=== PATIENT | female | born 1940 | race Caucasian/White ===

== ENCOUNTER 2017-03-10 10:15 | Outpatient (RCR) | payer MEDICARE, BC ==
[~2017-03-10 10:15] MED LIST: ASPIRIN 32325 MG/TA1 PO; NORCO 325 MG-51 TAB PO; PRINIVIL2.5 MG PO; SYNTHROID 0.0.025 MG PO; ULTRAM 50MG TAB50 MG PO
== END 2017-04-13 08:48 | disposition still patient (30) ==
LOC: MKS.ESL.PT 10:15
DX: M43.17 Spondylolisthesis, lumbosacral region (principal); M47.896 Other spondylosis, lumbar region; S72.102D Unspecified trochanteric fracture of left femur, subsequent encounter for closed fracture with routine healing; X58.XXXD Exposure to other specified factors, subsequent encounter
CPT/HCPCS: G8978-GP; G8979-GP; G8980-GP

== ENCOUNTER 2018-12-18 09:15 | Outpatient (RCR) | payer MEDICARE, BC | END 2019-01-18 | disposition home or self-care (01) | LOC: MKS.ESL.PT | DX: S72.91XD Unspecified fracture of right femur, subsequent encounter for closed fracture with routine healing (principal) | CPT/HCPCS: G8978-GP; G8979-GP ==

== ENCOUNTER 2022-06-02 13:25 | Outpatient (RCR) | payer SELFPAY | END 2022-06-06 | LOC: COL.CR | DX: Z29.8 Encounter for other specified prophylactic measures (principal) ==

== ENCOUNTER 2022-06-07 04:04 | Outpatient (RCR) | payer SELFPAY | END 2022-07-07 | LOC: COL.CR | DX: Z29.8 Encounter for other specified prophylactic measures (principal) ==

== ENCOUNTER 2022-11-24 20:20 | Inpatient (IN) | payer MEDICARE, BC ==
[~2022-11-24] VITALS: Ht 162.6 cm; Wt 46.1 kg
[2022-11-24 21:11] LABS: BASO # 0.1 K/mm3 (0.0-0.2); BASO % 0.3 % (0.0-2.0); EOS # 0.1 K/mm3 (0.0-0.7); EOS % 0.4 % (0.0-4.0); GRAN % 88.2 % (42.2-75.2); HEMOGLOBIN 14.6 g/dl (12.5-16.0); LYMPH # 1.2 K/mm3 (1.2-3.4); LYMPH % 6.3 % (20.0-51.0); MEAN CELL VOLUME 100 fl (80.0-100.0); MEAN CORPUSCULAR HEMOGLOBIN 32 pg (27-31); MEAN CORPUSCULAR HGB CONC 32 g/dl (33.0-37.0); MEAN PLATELET VOLUME 9.4 fl (7.4-10.4); MONO # 0.9 K/mm3 (0.1-0.6); MONO % 4.4 % (1.7-9.3); PLATELET COUNT 346 K/mm3 (130-400); RED BLOOD COUNT 4.52 M/mm3 (4.10-5.30); REDCELL DISTRIBUTION WIDTH-CV 13.7 % (11.5-14.5)
[2022-11-24 21:24] LABS: ALBUMIN 4.5 gm/dL (3.4-4.8); C-REACTIVE PROTEIN 0.13 mg/dL (0.00-0.50); CALCIUM 10.8 mg/dL (8.4-10.2); CREATININE, serum 1.27 mg/dL (0.57-1.11); POTASSIUM 4.6 mmol/L (3.5-4.5); TOTAL PROTEIN 8.3 gm/dL (6.2-8.1)
[2022-11-24 21:29] LABS: COLLECTION METHOD CLEAN CATCH
[2022-11-24 21:39] LABS: PH 5.5 (5.0-8.5); URINE APPEARANCE Turbid (CLEAR/HAZY); URINE BLOOD TRACE-INTACT (NEGATIVE); URINE COLOR Yellow (YELLOW); URINE GLUCOSE Negative (NEGATIVE); URINE KETONE 1+ (NEGATIVE); URINE NITRATE Positive (NEGATIVE); URINE PROTEIN(semi-quant) 3+ (NEGATIVE); URINE UROBILINOGEN 0.2 E.U/dL (0.2-1.0)
[2022-11-24 21:43] LABS: MUCOUS Present (NOT PRESENT); URINE BACTERIA Rare /hpf (NONE SEEN)
[2022-11-24] MEDS ORDERED: NAMENDA 10MG TA10 MG PO (23:07)
[2022-11-24] MEDS ORDERED: ARICEPT10 MG PO (23:07)
[2022-11-24] MEDS ORDERED: SYNTHROID0.05 MG/TA PO (23:08)
[2022-11-24] MEDS ORDERED: PRINIVIL2.5 MG PO (23:09)
[2022-11-25] VITALS (8 sets, daily range): BP systolic 113–141; BP diastolic 62–76; PULSE 75–99; TEMP 97.5–99.6
[2022-11-25 01:04] LABS: ANION GAP 11 mmol/L (7-16); BLOOD UREA NITROGEN 19 mg/dL (10-20); CALCIUM 8.4 mg/dL (8.4-10.2); CARBON DIOXIDE 20 mmol/L (23-31); CHLORIDE 115 mmol/L (98-107); CREATININE, serum 0.88 mg/dL (0.57-1.11); GLUCOSE 118 mg/dL (70-99); MAGNESIUM 1.8 mg/dL (1.6-2.6); PHOSPHOROUS 2.4 mg/dL (2.3-4.7); POTASSIUM 3.9 mmol/L (3.5-4.5); SODIUM 146 mmol/L (136-145)
[2022-11-25 01:25] LABS: TROPONIN-I < 0.010 ng/mL (0.00-0.033); TSH w REFLEX 2.512 uIU/mL (0.350-4.940)
--- NOTE | 2022-11-25 02:15 | NUR ---
The patient arrived from ED. This patient is alert but not oriented. Pt was incontinent of stool, pt unable to tell us she needs to go to the bathroom. The patient's IV is in the Right AC, however, the IV does not work well with the patient's bending elbow. Labs were needed at the 0300 hour, so this RN started a new IV to draw those labs. The patient does have some reddening between the gluteal folds from soreness d/t diarrhea. The patient has a lot of bruising and skin tears to the bilateral upper extremities. The patient's daughter Lashanda is in the room and at the bedside. She stayed by the request of CAMI Lopez. No other concerns.
[2022-11-25 03:01] LABS: MEAN CELL VOLUME 99 fl (80.0-100.0); MEAN CORPUSCULAR HGB CONC 33 g/dl (33.0-37.0); MEAN PLATELET VOLUME 9.3 fl (7.4-10.4); RED BLOOD COUNT 3.63 M/mm3 (4.10-5.30); REDCELL DISTRIBUTION WIDTH-CV 13.5 % (11.5-14.5)
[2022-11-25 03:03] LABS: HEMOGLOBIN 11.8 g/dl (12.5-16.0); MEAN CORPUSCULAR HEMOGLOBIN 33 pg (27-31); PLATELET COUNT 241 K/mm3 (130-400)
[2022-11-25 03:19] LABS: ALBUMIN 3.3 gm/dL (3.4-4.8); CALCIUM 8.6 mg/dL (8.4-10.2); CREATININE, serum 0.96 mg/dL (0.57-1.11); POTASSIUM 3.8 mmol/L (3.5-4.5); TOTAL PROTEIN 6.1 gm/dL (6.2-8.1)
[2022-11-25 03:33] LABS: BAND 10 % (0-10); LYMPHOCYTE 4 % (20.0-51.0); NEUTROPHILS 84 % (42.0-75.2); PLATELET ESTIMATE NORMAL (NORMAL)
[2022-11-25 03:34] LABS: HYPOCHROMIA 1+
--- NOTE | 2022-11-25 09:03 | NUR ---
CHARITY met with the patient and her daughter, Lorrie, to discuss discharge plan. The patient was sleeping. The patient lives in [place] with her , Noah (ph#[phone]). Lorrie states that the patient has a walker, but will forget to use it, due to some underlying dementia. She states that her father (the patient's ) typically holds her hand when she walks. She needs assistance with ADLs and the patient's and daughters assist with this. The patient's PCP is Dr. Justine Browne in [place] ph#[phone] and she receives her medications from [facility]. Lorrie states that she believes the patient has a DPOA-HC, but she would need to check with her father. Lorrie states that her and her sisters live in [place] and help with the patient. She states that the plan is for the patient to return home with family support upon discharge. PT/OT have been ordered. Will await their evals. *Discharge plan: home with family support. Will await PT/OT evals*
--- NOTE | 2022-11-25 13:33 | NUR ---
Initial visit attempt: Patient slept though Furnace Charger gave her card to her and let him and their daughter know that she is available to offer prayer and God's blessings for Trinh at anytime throughout the day.
--- NOTE | 2022-11-25 17:00 | NUR ---
PATIENT COMPLETELY INCONT. STILL UNABLE TO HOLD A CONVERSATION.
--- NOTE | 2022-11-25 18:30 | NUR ---
PATIENT RESTING IN BED. REPOSITIONED TO LEFT SIDE. CALL [facility] IN REACH. BED ALARM ON. FAMILY AT BEDSIDE.
[2022-11-26] VITALS (11 sets, daily range): BP systolic 116–175; BP diastolic 61–81; PULSE 64–90; TEMP 97.7–99.2
[2022-11-26 06:56] LABS: BASO % 0.3 % (0.0-2.0); EOS # 0.1 K/mm3 (0.0-0.7); EOS % 0.9 % (0.0-4.0); GRAN # 5.7 K/mm3 (1.4-6.5); GRAN % 75.6 % (42.2-75.2); HEMATOCRIT 34.7 % (37.0-47.0); HEMOGLOBIN 11.4 g/dl (12.5-16.0); LYMPH # 1.1 K/mm3 (1.2-3.4); LYMPH % 14.2 % (20.0-51.0); MEAN CELL VOLUME 100 fl (80.0-100.0); MEAN CORPUSCULAR HEMOGLOBIN 33 pg (27-31); MEAN CORPUSCULAR HGB CONC 33 g/dl (33.0-37.0); MEAN PLATELET VOLUME 9.6 fl (7.4-10.4); MONO # 0.6 K/mm3 (0.1-0.6); MONO % 8.3 % (1.7-9.3); PLATELET COUNT 215 K/mm3 (130-400); RED BLOOD COUNT 3.48 M/mm3 (4.10-5.30); REDCELL DISTRIBUTION WIDTH-CV 13.8 % (11.5-14.5)
[2022-11-26 07:21] LABS: ALBUMIN 2.9 gm/dL (3.4-4.8); BILIRUBIN,TOTAL 0.5 mg/dL (0.2-1.2); CALCIUM 8.4 mg/dL (8.4-10.2); CREATININE, serum 0.83 mg/dL (0.57-1.11); POTASSIUM 3.4 mmol/L (3.5-4.5); TOTAL PROTEIN 5.5 gm/dL (6.2-8.1)
--- NOTE | 2022-11-26 08:00 | NUR ---
PATINET SLEEPING, RESTING IN BED. DAUGHTER AT BEDSIDE. BED ALARM ON. CALL LIGHT [facility] IN REACH.
--- NOTE | 2022-11-26 17:00 | NUR ---
TAMYN REQUIRES 1 ASSIST FROM BED TO BEDSIDE COMMODE, TWO ASSIST FROM BEDSIDE COMMMODE BACK TO BED. PATIENT MORE AWAKE AND ALERT TODAY, UP AND ANSWERS OCCASIONAL QUESTIONS. PATIENT IS STILL DISORIENTED TO TIME. IV PATENT, FLUIDS INFUSING. FAMILY ALWAYS AT BEDSIDE. BED ALARM ON, CALL LIGHT WITH IN REACH.
[2022-11-27] VITALS (12 sets, daily range): BP systolic 145–181; BP diastolic 69–98; PULSE 79–109; TEMP 97.6–98.6
[2022-11-27 06:21] LABS: GRAN # 3.9 K/mm3 (1.4-6.5); GRAN % 79.3 % (42.2-75.2); LYMPH # 0.9 K/mm3 (1.2-3.4); LYMPH % 18.3 % (20.0-51.0); MEAN CELL VOLUME 97 fl (80.0-100.0); MEAN CORPUSCULAR HEMOGLOBIN 33 pg (27-31); MEAN CORPUSCULAR HGB CONC 34 g/dl (33.0-37.0); MEAN PLATELET VOLUME 9.7 fl (7.4-10.4); MONO # 0.1 K/mm3 (0.1-0.6); PLATELET COUNT 256 K/mm3 (130-400); RED BLOOD COUNT 4.43 M/mm3 (4.10-5.30); REDCELL DISTRIBUTION WIDTH-CV 13.1 % (11.5-14.5)
[2022-11-27 06:40] LABS: HEMOGLOBIN 14.4 g/dl (12.5-16.0)
[2022-11-27 06:48] LABS: ALBUMIN 3.6 gm/dL (3.4-4.8); BILIRUBIN,TOTAL 0.5 mg/dL (0.2-1.2); CALCIUM 9.1 mg/dL (8.4-10.2); CREATININE, serum 0.77 mg/dL (0.57-1.11); POTASSIUM 3.9 mmol/L (3.5-4.5)
--- NOTE | 2022-11-27 09:08 | NUR ---
PATIENT LOOKS TO BE FREE FROM HIVES REPORTED BY NIGHT RN. PATIENT DID SAY SHE WAS ITCHY LAST NIGHT, BUT IS NOT AT THIS TIME. PATIENT IS RESTING IN BED, AWAKE AND ALERT, DENIES ANY NEEDS OR COMPLAINTS. FAMILY AT BEDSIDE. LOOP RECORDER INCISION SITE DRESSING DRY AND INTACT. ABDI RN AT BEDSIDE. BED ALARM LEFT ON , CALL LIGHT WITH IN REACH.
--- NOTE | 2022-11-27 13:00 | NUR ---
PATIENT AWAKE AND ALERT, RESTING IN BED. FAMILY AT BEDSIDE. PATIENT DENIES ANY NEEDS OR PAIN AT THIS TIME. CALL LIGHT [facility] IN REACH. BED ALARM ON. MAGNESIUM INFUSING.
--- NOTE | 2022-11-27 13:02 | NUR ---
Dr. Rueda informs patient likely discharging on Tuesday11/30/2022; PT/OT recommending SNF vs. patient and family preference for HH upon intake assessment. Electrical And Instrumentation Mechanic to follow up with patient/family regarding SNF placement per recommendations.
--- NOTE | 2022-11-27 13:40 | NUR ---
PATIENT FAMILY CONSTANTLY REPORTING TO RN () THAT PATIENT WOULD LIKE TO GET UP, PATIENT WANTS TO SIT UP, PATIENT STATED SHE WANTS TO GET ON COMMODE. HOWEVER PATIENT INCONTONINENT. WHEN ASKING THE PATIENT IF SHE NEEDS TO GO TO THE BATHROOM. THE PATIENT SAYS "OH OK." CHRIS IS AGREES TO WHATEVER US STATED. SEEMS UNABLE TO MAKE DECISIONS FOR HERSELF. WHEN IV EXPLAINED, CHRIS DOES NOT KNOW WHAT IT IS FOR.
--- NOTE | 2022-11-27 13:49 | NUR ---
Health And Wellness Coordinator rounds: Health And Wellness Coordinator visit attempted. Someone in what appeared to be EMS uniform was with Patient.
--- NOTE | 2022-11-27 14:15 | NUR ---
A FEW MINUTES AFTER RN AND PCT FINISHED TOILETING/RETURNING PATIENT TO BED AND RESPOSITOINING, HER FAMILY MEMBER AGAIN CAME TO DESK AND STATED HER MOTHER NEEDED TO TRY THE BED PIERCE. INFORMED PATIENTS FAMILY MEMBER THAT SITTING ON THE BEDSIDE COMMODE FOR THE 4TH TIME IN ONE HOUR IS NOT GOING TO MAKE THE PATIENT VOID, SHE IS INCONTINENT, NOR WILL IT HELP WITH HOW ANXIOUS SHE IS. EDUCATED THE PATIENTS DAUGHTER THAT ALL WE CAN DO IS PROVIDE A CALM ENVIROMENT, WITH MAYBE LESS TRAFFIC IN AND OUT, KEEP PROVIDING REORIENTATION NEEDED, AND KEEP HER COMFORTABLE POSSIBLE. AT LEAST 10 DIFFERENT FAMILY MEMBERS HAVE BEEN IN THE ROOM JUST FOR THIS RN SHIFT.
--- NOTE | 2022-11-27 16:35 | NUR ---
PATIENT STILL FIDGETING AND RESTLESS, DESPITE MULTIPLE ATTEMPTS AT REORIENTATION. PATIENT ASSISTED TO RECLINER BY RN AND PCT. CALL LIGHT WITHIN REACH. PATIENTS DAUGHTER AT BEDSIDE.
--- NOTE | 2022-11-27 17:45 | NUR ---
PATIENTS FAMILY DID NOT CALL FOR ASSISTANCE FOR PATIENT TO GET BACK INTO BED. PATIENT URINATED ON FLOOR, SO MUCH SO THAT ENVIRONMENTAL SERVICES HAD TO ASSIST. PATIENTS FAMILY EDUCATED ON THE NEED TO CALL PCT RESERVOIR CARETAKER FOR ASSISTANCE WITH TRANSFERING PATIENT AND THE RISK FOR FALL IN DOING SO WITHOUT STAFF. PATIENT REPOSITIONED BY PCT, RESTING IN BED.
--- NOTE | 2022-11-27 21:18 | NUR ---
AFTER MEDICATION ADMINISTRATION THIS RN WALKED OUT OF THE ROOM. SOON I WALKED OUT, THE FAMILY CAME OUT SAYING SHE NEEDED TO GO TO THE BATHROOM. WE ENTERED THE ROOM, AND THE DAUGHTERS WERE SITTING ON THE BED WITH THE PATIENT. THE PATIENT DOES NOT MOVE VERY WELL, SHE LEANS BACKWARDS AND DOES NOT BEND WELL. HER FEET SHUFFLE, HOWEVER SHE DOES TAKE A WHILE TO MOVE APPROPRIATELY.
[2022-11-28] VITALS (9 sets, daily range): BP systolic 111–134; BP diastolic 62–76; PULSE 74–91; TEMP 97–98.8
--- NOTE | 2022-11-28 05:44 | NUR ---
PT IS VERY DIFFICULT TO GET UP TO BEDSIDE COMMODE, CONSTANT CUES ARE GIVEN FOR HER TO MOVE HER FEET, AND GRAB THE CHAIR TO HELP LOWER HER SELF, NEED TO TELL HER WHEN TO BEND AT THE WAIST. SHE IS VERY GLASSY-EYED, PLEASANTLY CONFUSED.
--- NOTE | 2022-11-28 09:58 | NUR ---
Shift assessment performed. Scheduled medications given. VSS. Patient alert but not oriented. Patient up to bedside commode with the assistance of PT and this RN. Able to follow commands. Patient groaned and grimaced with movement. PRN tylenol given. Patient is currently resting in bed. Family at the bedside. Call light in reach. Fall and seizure and fall percautions in place.
--- NOTE | 2022-11-28 12:10 | NUR ---
Patient's daugtherLashanda, contacted this RN about patients allergy to macrobid. Per fadither, patient has a delayed reaction to this medication and has been hospitalized is the past due to this medication. Dr. Rueda notified, this RN was instructed to continue to monitor patient for reactions. Dr. Rossi notified regarding patient multiple allergies and requested assistance with abx management. [place] to contact family and modify plan of care as needed.
--- NOTE | 2022-11-28 12:15 | NUR ---
Patient shows no s/s of allergic reaction at this time.
--- NOTE | 2022-11-28 13:21 | NUR ---
CHARITY spoke to Dr. Rueda in regards to patient's discharge planning. provided that patient will discharge on Tuesday11/29/2022. Request was made to discuss disharge planning with family for choice of SNF. CHARITY will continue to follow.
--- NOTE | 2022-11-28 13:40 | NUR ---
CHARITY spoke with daughter Lashanda [phone]. Daughter provided that patient preference is [facility] for choice of SNF. Referral documentation sent to [facility]. CHARITY will continue to follow.
--- NOTE | 2022-11-28 17:07 | NUR ---
Patient has had an ok day. Slept a majority of the shift, was easily aroused by physical and verbal stimulation. No s/s of pain or disomcofort at this time. VSS. Call light in reach. Fall and seizure percautions in place. Family at the bedside.
[2022-11-29] VITALS (7 sets, daily range): BP systolic 120–165; BP diastolic 64–99; PULSE 68–99; TEMP 98–99.8
[2022-11-29 06:43] LABS: BASO % 0.2 % (0.0-2.0); EOS # 0.1 K/mm3 (0.0-0.7); EOS % 1.7 % (0.0-4.0); GRAN # 4.2 K/mm3 (1.4-6.5); GRAN % 65.8 % (42.2-75.2); HEMATOCRIT 39.2 % (37.0-47.0); HEMOGLOBIN 12.8 g/dl (12.5-16.0); LYMPH # 1.3 K/mm3 (1.2-3.4); LYMPH % 20.9 % (20.0-51.0); MEAN CELL VOLUME 98 fl (80.0-100.0); MEAN CORPUSCULAR HEMOGLOBIN 32 pg (27-31); MEAN CORPUSCULAR HGB CONC 33 g/dl (33.0-37.0); MEAN PLATELET VOLUME 9.7 fl (7.4-10.4); MONO # 0.7 K/mm3 (0.1-0.6); MONO % 10.6 % (1.7-9.3); PLATELET COUNT 247 K/mm3 (130-400); REDCELL DISTRIBUTION WIDTH-CV 13.2 % (11.5-14.5)
[2022-11-29 07:02] LABS: CALCIUM 8.4 mg/dL (8.4-10.2); CREATININE, serum 0.77 mg/dL (0.57-1.11)
[2022-11-29 07:16] LABS: POTASSIUM 2.8 mmol/L (3.5-4.5)
--- NOTE | 2022-11-29 08:25 | NUR ---
Pt awake and sitting up in bed. Morning medications administered per eMAR. Shift assessment completed. VSS. Telemetry remains on. INT in L forearm remains intact; no edema or redness. Incision site over loop recorder remains intact; ecchymosis noted. No complaints of pain at this time. Call light within reach. Fall precautions remain in place. Daughter remains at bedside.
--- NOTE | 2022-11-29 09:39 | NUR ---
Clinical updates sent to Srinath at [facility].
--- NOTE | 2022-11-29 14:50 | NUR ---
Patient scheduled telehealth visit with Dr. Bang, Infectious Disease. Pt consents to visit. Equipment set up, audio and video connections established. Visit conducted by . No technical concerns or issues. PT daughter present in room, along with patients other daughter on the phone.
--- NOTE | 2022-11-29 22:52 | NUR ---
Patient assessed around 193. Assisted to bathroom with one assist with use of walker and gait belt. Denied pain and discomfort. Peripheral INT to left forearm. Given ABX per orders. Voices no questions, needs, or concerns at this time. In bed with call light within reach. High fall risk precautions in place. Bed alarm on.
[2022-11-30] VITALS (7 sets, daily range): BP systolic 138–184; BP diastolic 67–87; PULSE 79–97; TEMP 98–99.2
--- NOTE | 2022-11-30 05:41 | NUR ---
Has denied pain and discomfort this shift. Received IV ABX per orders. Voices no questions, needs, or concerns at this time. In bed with call light within reach. High fall risk precautions in place.
[2022-11-30 06:41] LABS: BASO % 0.1 % (0.0-2.0); EOS # 0.1 K/mm3 (0.0-0.7); EOS % 0.9 % (0.0-4.0); GRAN # 6.2 K/mm3 (1.4-6.5); HEMATOCRIT 39.3 % (37.0-47.0); HEMOGLOBIN 12.9 g/dl (12.5-16.0); LYMPH # 1.7 K/mm3 (1.2-3.4); LYMPH % 19.5 % (20.0-51.0); MEAN CELL VOLUME 97 fl (80.0-100.0); MEAN CORPUSCULAR HEMOGLOBIN 32 pg (27-31); MEAN CORPUSCULAR HGB CONC 33 g/dl (33.0-37.0); MONO # 0.6 K/mm3 (0.1-0.6); MONO % 6.8 % (1.7-9.3); PLATELET COUNT 254 K/mm3 (130-400); RED BLOOD COUNT 4.05 M/mm3 (4.10-5.30)
[2022-11-30 07:06] LABS: CALCIUM 8.7 mg/dL (8.4-10.2); CREATININE, serum 0.74 mg/dL (0.57-1.11); POTASSIUM 3.8 mmol/L (3.5-4.5)
--- NOTE | 2022-11-30 08:05 | NUR ---
Pt sitting up in chair. Pt escorted to bathroom with walker. Morning medication administered per eMAR. Shift assessment completed. Telemetry remains on. INT in L forearm intact with yoselyn wrap in place. Incision over loop recorder remains intact with ecchymosis noted. No further request at this time. Call light within reach. Chair alarm on. Daughter remains at bedside.
--- NOTE | 2022-11-30 11:50 | NUR ---
Daughters conducting shower for pt. This nurse had a discussion with pts daughter previously regarding pt safety with showers, as pt fails to follow commands and remains unsteady when ambulating. Dt to pts mentation I recommended bed baths. Daughter remained persistent with shower and thus conducting pts shower herself. LEANDRO Hein providing some assistance.
--- NOTE | 2022-11-30 12:03 | NUR ---
Patient scheduled telehealth visit with Dr. Bang, Infectious Disease. Pt consents to visit. Equipment set up, audio and video connections established. Visit conducted by MD. No technical concerns or issues. Patients daughters were present in the room.
[2022-11-30] MEDS ORDERED: AZTREONAM1 GM IV ×2 (12:32)
[2022-11-30] MEDS ORDERED: ARICEPT10 MG PO (12:33)
[2022-11-30] MEDS ORDERED: PRINIVIL5 MG PO (12:33)
[2022-11-30] MEDS ORDERED: SYNTHROID0.05 MG/TA PO (12:34)
[2022-11-30] MEDS ORDERED: NAMENDA 10MG TA10 MG PO (12:34)
[2022-11-30] MEDS ORDERED: TYLENOL 325MG325 MG PO (12:34)
--- NOTE | 2022-11-30 15:55 | NUR ---
Metal Milling Machine Operator spoke with Srinath at [facility] who advised they can accept patient. CHARITY was notified by Hospitalist that patient will need IV antibiotics. CHARITY provided the antibiotic to Srinath who confirmed that they can manage this. Family requested IPR Screen. CHARITY gave screen to Paige, IPR Director and she declined. CHARITY met with patient's daughter, Lashanda who is agreeable to discharge to [facility]. CHARITY reviewed IM with Lashanda who verbalized understanding and provided signature. CHARITY placed form in chart and provided copy to Lashanda. Patient had PICC placed today and will need to have first dose given tonight prior to discharge. CHARITY updated family and the team, patient to discharge to [facility] tomorrow. Discharge Plan: [facility] SNF
--- NOTE | 2022-11-30 21:36 | NUR ---
AT BEDSIDE. PATIENT CONFUSED AND DISORIENTED, BUT ALERT. NO NEEDS AT THIS TIME. TOOK NIGHTLY MEDS. LAYING IN BED SUPINE. PICC IN PLACE WITH BLOOD RETURN. POSSIBLE DISCHARGE TO [facility] TOMORROW. BED IN LOWEST POSITION. CALL LIGHT IN PLACE.
[2022-12-01 00:05] VITALS: BP 140/75; PULSE 92; TEMP 98.2
[2022-12-01 04:51] VITALS: BP 149/93; PULSE 104; TEMP 98.2
--- NOTE | 2022-12-01 06:07 | NUR ---
PATIENT RESTING IN BED AND SLEPT MOST OF THE NIGHT. NO CHANGES THIS MORNING. LABS DRAWN FROM PICC AND ANTIBIOTIC WAS GIVEN. FAMILY IS EXCITED AND ANXIOUS TO GET HER TO [facility]. DAUGHTER AT BEDSIDE, QUESTIONS ANSWERED.
[2022-12-01 08:11] VITALS: BP 151/66; PULSE 78; TEMP 97.9
[2022-12-01] MEDS ORDERED: AZTREONAM1 GM IV (08:29)
--- NOTE | 2022-12-01 10:10 | NUR ---
GAVE REPORT TO AZAM MIN AT [facility] FOR PATIENT COMING TO THE FACILITY TODAY. NURSE ACKNOWLEDGED UNDERSTANDING.
[2022-12-01 10:49] VITALS: BP 151/66; PULSE 78; TEMP 97.9
--- NOTE | 2022-12-01 13:41 | NUR ---
Licensed Marine Engineer spoke with Srinath at [facility] who advised the orders from yesterday looked good. Transport time set for 1030. SW contacted patient's daughter, Lashanda and notified her of transport time. Discharge Plan: [facility] SNF
== END 2022-12-01 10:36 | disposition home or self-care (01) | DRG 854 ==
LOC: COL.ER 20:20 → MEDICAL 23:25
PROVIDERS: Emergency Medicine; Nurse Practitioner Family; Physician Assistant; Student in an Organized Health Care Education/Training Program; ADMIT Internal Medicine
PROC: 0JH632Z Insertion of Monitoring Device into Chest Subcutaneous Tissue and Fascia, Percutaneous Approach (ICD-10-PCS; principal; 2022-11-26)
PROC: 02HV33Z Insertion of Infusion Device into Superior Vena Cava, Percutaneous Approach (ICD-10-PCS; 2022-11-30)
DX: A41.9 Sepsis, unspecified organism (principal); E87.0 Hyperosmolality and hypernatremia; N39.0 Urinary tract infection, site not specified; N17.9 Acute kidney failure, unspecified; E87.20 Acidosis, unspecified; I10 Essential (primary) hypertension; R65.20 Severe sepsis without septic shock; K52.9 Noninfective gastroenteritis and colitis, unspecified; I08.3 Combined rheumatic disorders of mitral, aortic and tricuspid valves; Z66 Do not resuscitate; E03.9 Hypothyroidism, unspecified; E83.52 Hypercalcemia; E87.5 Hyperkalemia; I48.91 Unspecified atrial fibrillation; B96.20 Unspecified Escherichia coli [E. coli] as the cause of diseases classified elsewhere; E87.8 Other disorders of electrolyte and fluid balance, not elsewhere classified; R73.9 Hyperglycemia, unspecified; F03.90 Unspecified dementia, unspecified severity, without behavioral disturbance, psychotic disturbance, mood disturbance, and anxiety; D51.9 Vitamin B12 deficiency anemia, unspecified; M81.0 Age-related osteoporosis without current pathological fracture; T36.1X5A Adverse effect of cephalosporins and other beta-lactam antibiotics, initial encounter; Y92.239 Unspecified place in hospital as the place of occurrence of the external cause; E86.0 Dehydration; Z20.822 Contact with and (suspected) exposure to COVID-19; Z86.16 Personal history of COVID-19; Z90.49 Acquired absence of other specified parts of digestive tract; Z88.0 Allergy status to penicillin; Z88.1 Allergy status to other antibiotic agents; Z88.2 Allergy status to sulfonamides
CPT/HCPCS: C1751; C1764; J1200; J1650; J2185; J2405; J2930; J3475; J3480; J7030; J7040; J7120